=== PATIENT | female | born 1960 | race Caucasian/White ===

== ENCOUNTER 2020-11-12 20:13 | Emergency (ER) | payer OTHER ==
[~2020-11-12] VITALS: Ht 162.6 cm; Wt 68.0 kg
[2020-11-12 20:19] VITALS: Ht 162.6 cm; Wt 68.0 kg
[2020-11-12 21:19] LABS: BASOPHIL % 1.8 % (0.2-1.3); PLATELET COUNT 294 x10^3mcL (179-408); RED CELL DISTRIBUTION WIDTH 11.9 % (12.3-17.7)
[2020-11-12 21:54] LABS: CALCIUM 8.9 mg/dL (8.5-10.1); CARBON DIOXIDE 27.2 mmol/L (21-32); CHLORIDE SERUM 100 mmol/L (98-107); CREATININE SERUM 0.6 mg/dL (0.6-1.0); GFR1 > 60 mL/min; GLUCOSE SERUM 246 mg/dL (74-106); POTASSIUM SERUM 3.7 mmol/L (3.5-5.1); SODIUM SERUM 137 mmol/L (136-145)
[2020-11-12 21:59] LABS: ALKALINE PHOSPHATASE 81 U/L (46-116); ALT/SGPT 45 U/L (14-59); AST/SGOT 34 U/L (15-37); BILIRUBIN TOTAL 0.3 mg/dL (0.20-1.00)
[2020-11-12 22:00] LABS: ALBUMIN 3.3 g/dL (3.4-5.0); TOTAL PROTEIN, SERUM 8.6 g/dL (6.4-8.2)
[2020-11-12 23:50] LABS: AMPHETAMINE QUAL UR NONE DETECTED (See below)
[2020-11-13 03:14] VITALS: BP 120/57
== END 2020-11-13 03:16 | disposition short-term general hospital (02) ==
LOC: ED 20:13
PROVIDERS: Emergency Medicine
DX: U07.1 COVID-19 (principal); G93.40 Encephalopathy, unspecified; E11.9 Type 2 diabetes mellitus without complications
CPT/HCPCS: G0480; J1200; J1630; J2060; U0003